=== PATIENT | male | born 2000 | race Caucasian/White ===

== ENCOUNTER 2019-02-20 12:11 | Emergency (ER) | payer OTHER ==
[2019-02-20 12:30] VITALS: BP 137/83
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
== END 2019-02-20 13:53 | disposition home or self-care (01) ==
LOC: ER 12:30
DX: M25.551 Pain in right hip (principal); S50.01XA Contusion of right elbow, initial encounter
CPT/HCPCS: 73080; 73502; 99284; A4565